=== PATIENT | male | born 1950 | race Caucasian/White ===

== ENCOUNTER 2017-01-10 02:33 | Inpatient (IN) | payer MEDICARE, MEDICAID ==
[2017-01-10] VITALS (12 sets, daily range): BP systolic 92–136; BP diastolic 57–78; PULSE 54–71; RESP 15–22; O2SAT 95–100
[~2017-01-10] VITALS: Ht 177.8 cm; Wt 100.0 kg
[2017-01-10] MEDS ORDERED: Acetaminophen IV 1,000 MG in IV Premix 1 EACH IV PRN (04:00)
[2017-01-10] MEDS ORDERED: Vancomycin Dose per Pharmacist XX SCH (04:00)
[2017-01-10] MEDS ORDERED: Albuterol 2.5 mg/3 mL Inhalation Solution NEB PRN (04:00)
[2017-01-10] MEDS ORDERED: fentaNYL 2,500 mCg/250 mL 2,500 MCG in IV Premix 1 EACH IV PRN (04:02)
[2017-01-10] MEDS ORDERED: Dexmedetomidine 400 mCg/100 mL 400 MCG in IV Premix 1 EACH IV SCH (04:02)
[2017-01-10] MEDS ORDERED: fentaNYL-PF 50 mCg/mL 2 mL Inj IVPUSH PRN (04:05)
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
[2017-01-10] MEDS: Chlorhexidine 0.12% 15 mL Oral Solution MT SCH ×5 (04:30→20:30)
[2017-01-10 04:33] LABS: Mean Corpuscular Hemoglobin 30.2 pg (27.0-35.0); Mean Corpuscular Volume 92.7 fL (81-100); Platelet Count 199 bil/L (150-400)
[2017-01-10] MEDS ORDERED: Levofloxacin 750 mg/150 mL D5W IV ONE (04:35)
[2017-01-10] MEDS ORDERED: Piper-Tazo 3.375 Gm/50 mL D5W Minibag Plus - Q8H over 4 hrs IV ONE ×2 (04:35)
[2017-01-10] MEDS ORDERED: Piperacillin-Tazo 3.375 Gm Inj 3.375 GM in Dextrose 5% Minibag Plus 50 ML IV ONE (04:35)
--- NOTE | 2017-01-10 04:53 | ABG ---
DateTimeAnalyzed 04:49:00 -_ pH ____7.547 - pCO2 ___24.8__ -mmHg pO2 405 -mmHg HCO3- ___21.5__ -mmol/L ABE ____0.6__ -mmol/L tHb ___13.2__ -g/dL O2Hb ___98.1__ -% COHb ____1.0__ -% MetHb ____1.0__ -% sO2 __100.1__ -% FIO2 __100.0__ -% PEEP ____5.0__ -cmH2O Set_RR ___22.0__ -b/min Vt __590.0__ -L Drawn By MD - Date/Time Notified____ 04:52:00 -_ Spontaneous_RR ___22.0__ -b/min Oxygen Device 1 VENTILATOR - Notified By MD - Notified Whom RN J TAINA - B 762 -mmHg tO2 ___19.2__ -Vol% OrderingPhysicianInitials mf - Juan test N/A -
[2017-01-10 04:59] LABS: BASOPHILS % (AUTO) 0 % (0-3); EOSINOPHILS % (AUTO) 1 % (0-5); MONOCYTES % (AUTO) 10 % (4-12); NEUTROPHILS % (AUTO) 78 % (40-74)
[2017-01-10] MEDS ORDERED: MethylprednisoLONE Sodium Succinate 62.5 mg/mL 2 mL Inj IVPUSH ONE (05:40)
--- NOTE | 2017-01-10 06:15 | PCM.CONPHA ---
Subjective Date of Service: January 10, 2017 Requesting Provider: Rene Penaloza MD Respiratory Failure Reason for Pharmacy Consult: Vancomycin Dosing Objective Vital Signs Date Time Temp Pulse Resp B/P Pulse Ox O2 Delivery O2 Flow Rate FiO2 01/10/17 04:15 59 100 100 Height (Feet): 5 Height (Inches): 10.00 Test 01/10/17 04:25 White Blood Count 17.7th/mm3 (3.8-10.1) Red Blood Count 4.37mil/mm3 (4.40-5.80) Hemoglobin 13.2g/dL (13.8-17.2) Hematocrit 40.5% (41.0-50.0) Mean Corpuscular Volume 92.7fL (81-100) Mean Corpuscular Hemoglobin 30.2pg (27.0-35.0) Mean Corpuscular Hemoglobin Concent 32.6% (32.0-37.0) Red Cell Distribution Width 16.9% (12.3-15.4) Platelet Count 199bil/L (150-400) Neutrophils (%) (Auto) 78% (40-74) Lymphocytes (%) (Auto) 6% (14-46) Monocytes (%) (Auto) 10% (4-12) Eosinophils (%) (Auto) 1% (0-5) Basophils (%) (Auto) 0% (0-3) Band Neutrophils % 3% (1-5) Metamyelocytes % 2% (0-0) Sodium Level 141mEq/L (134-144) Potassium Level 4.7mEq/L (3.5-5.2) Chloride Level 107mEq/L (97-108) Carbon Dioxide Level 23mmol/L (18-29) Blood Urea Nitrogen 24mg/dL (8-27) Creatinine 0.98mg/dL (0.76-1.27) Estimat Glomerular Filtration Rate 81mL/min (>59) Glucose Level 162mg/dL (60-99) Lactic Acid Level 2.0mmol/L (0.4-2.0) Calcium Level 7.0mg/dL (8.5-10.1) Total Bilirubin 0.6mg/dL (0.0-1.2) Aspartate Amino Transf (AST/SGOT) 64U/L (0-50) Alanine Aminotransferase (ALT/SGPT) 149U/L (0-44) Alkaline Phosphatase 42U/L (25-160) Total Protein 4.4g/dL (6.4-8.4) Albumin 2.4g/dL (3.4-5.0) Prealbumin 27mg/dL (20-40) Procalcitonin 0.67ng/mL (0.00-0.08) Hold Ha Top Tube Received (Received) Assessment/Plan Assessment/Plan A: * Vancomycin dosing by pharmacy for 66 y/o man with possible healthcare associated pneumonia * [facility], the patient received vancomycin 2000 mg IV at around 0300 on 01/10 * He is also being started on Zosyn and Levaquin * Estimated CrCl for the patient is 91 mL/min (Cockcroft & Gault using AdjBW) * Estimated vancomycin half-life is 9 hours and estimated Vd is 76 liters P: * Starting vancomycin 1750 mg IV every 12 hours * Target a vancomycin trough range of 15 - 20 mcg/mL * Drawing a trough level prior to the fourth dose Thank you. Pharmacy will continue to follow this patient. Harika Amado, PharmD Harika Amado January 10, 2017 06:15
--- NOTE | 2017-01-10 06:37 | NUR ---
Admit note: Pt arrived to room 2016 at 0350 per cart by flight crew. Pt was sedated and intubated being ventilated by BVM. Pt lifted over to bed and levophed and NS bolus was started. Pt had received 3Liter of [place] [facility] and 1 liter of NS here. Levophed started along with propofol for sedation. Pt had vanco infusing on arrival and was continued. Pt also received levaquin and zosyn. flanagan was inserted with tea colored urine. Blood cultures and labs were obtained.
[2017-01-10] MEDS: Propofol Inj 1,000,000 MCG in IV Premix 1 EACH IV SCH ×5 (06:46→23:17)
[2017-01-10] MEDS ORDERED: Norepinephrine 8,000 mCg/250 mL D5W Premix IV SCH (07:00)
[2017-01-10] MEDS: Heparin 5,000 Unit/mL Inj SUBQ SCH ×3 (08:30→16:30)
[2017-01-10] MEDS ORDERED: CHOL400T PO (08:33)
[2017-01-10] MEDS ORDERED: CALC600T20 PO (08:33)
[2017-01-10] MEDS ORDERED: FOLI1TAB18 PO (08:34)
[2017-01-10] MEDS ORDERED: DIVA500T14 PO (08:34)
[2017-01-10] MEDS ORDERED: HYDR25SU31 RC (08:34)
[2017-01-10] MEDS ORDERED: TAMS0.4C98 PO (08:35)
[2017-01-10] MEDS ORDERED: RIVA20TA PO (08:35)
[2017-01-10] MEDS ORDERED: VIT1CAPS8 PO (08:36)
[2017-01-10] MEDS ORDERED: POLY17PO6 PO (08:37)
[2017-01-10] MEDS ORDERED: ACET325T51 PO (08:37)
[2017-01-10] MEDS ORDERED: SERT20OR6 PO (08:38)
[2017-01-10] MEDS ORDERED: LEVO750T9 PO (08:38)
[2017-01-10] MEDS ORDERED: FURO-129 PO (08:38)
[2017-01-10] MEDS ORDERED: LISI10TA PO (08:39)
[2017-01-10] MEDS ORDERED: METO100T3 PO (08:39)
[2017-01-10] MEDS ORDERED: PRE20 PO (08:40)
[2017-01-10] MEDS ORDERED: LACT1CAP73 PO (08:41)
--- NOTE | 2017-01-10 08:50 | DRSVH ---
PROCEDURE: X-RAY CHEST ONE VIEW, PORTABLE ([id number]) INDICATIONS: vented patient TECHNIQUE: One view of the chest was acquired. COMPARISON: [facility], , CHEST 2 VIEW, 11/19/2008, 10:32. FINDINGS: Surgical changes and devices: Right IJ CVL present with tip projected over the cavoatrial junction. The expected position of the ETT and nasogastric tube.. Lungs and pleura: Lung findings are low. Interstitium is prominent. Spiculated density projected ov er the lower one third of the right lung. Air space opacity involves the medial left lung base. Mediastinum: Mediastinal contours appear normal. Heart size is normal. Bones and chest wall: No suspicious bony lesions. Overlying soft tissues appear unremarkable. IMPRESSION: 1. Support lines and tubes as above. 2. Possible spiculated density involving the lower one third of the right lung. Although findings ma y be related to summation shadow or pulmonary vessel on end, small spiculated nodule cannot be exclud ed and attention on followup imaging is recommended. 3. Medial left basilar airspace opacity consistent with atelectasis aspiration or pneumonia. Dictated by: Chacorta IVORY Interpreted: Paige Acevedo MD on 01/10/2017 at 8:47 Transcribed by: LYNDA on 01/10/2017 at 8:49 Approved by: Paige Acevedo M.D. on 01/11/2017 at 9:07
--- NOTE | 2017-01-10 08:58 | NUR ---
Admit nurse: Med rec and admission completed from records provided by [facility] and [facility] of [place]. Pt is intubated and unable to participate at this time.
[2017-01-10] MEDS ORDERED: Midazolam Inj 100 MG in IV Premix 1 EACH IV SCH (09:05)
[2017-01-10] MEDS ORDERED: levETIRAcetam Inj 1,000 MG in IV Premix 1 EACH IV ONE ×2 (09:10→13:20)
[2017-01-10] MEDS ORDERED: Heparin 25K Unit/500mL 0.45 NS 25,000 UNIT in IV Premix 1 EACH IV SCH (09:15)
[2017-01-10] MEDS ORDERED: Heparin 5,000 Unit/mL Inj IVPUSH PRN (09:15)
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
--- NOTE | 2017-01-10 10:18 | NUR ---
Faxed clinicals and facesheet to [facility] [place] [facility], patient was sent there from [facility]. Wanting to updated facility and let them know his progress. Fax for [facility] [place] [phone] Phone for [facility] [place] [facility] [phone]
--- NOTE | 2017-01-10 10:31 | NUR ---
NUTRITION ASSESSMENT: ASSESS: Pt is a 66yo M admitted for respiratory failure. Pt is currently vented and sedated. NPOx1 day. Received verbal order in rounds to start TF. PMHX: Afib, seizures, TBI, HTN, Depression LABS: Reviewed. Glu 162, Ca 7.0, AST 64, ALT 149, Alb 2.4 MEDS: Reviewed. Fentanyl, propofol currently running at 19.4ml/hr providing 512kcal/day GI: 0 BM recorded yet SKIN: Alberto 8, no issues noted yet CURRENT WTS: 108.2kg, BMI 34.2kg/m2, IBW 74.5kg DIET: NPO x1 day EST. NEEDS: BMI, vent Kcals: 2165-2380kcal/day (20-22kcal/kg) Pro: 110-135g/day (1.5-1.8g/kg) Fluids: ~2700-3200ml/day (25-30ml/kg) NUTRITION DIAGNOSIS: 1.) Inadequate oral intake related to decreased ability to consume sufficient energy as evidenced by current NPO status NUTRITION INTERVENTION: 1.) Recommend start TF of pulmocare at 10ml/hr. If tolerated, advance by 10ml q 6 hrs until reach goal rate of 57ml/hr to provide 1881kcal (2393kcal w/propofol) and 78.5g pro (100% kcal and 71% pro needs) 2.) Once TF at goal rate, recommend addition of 1 packet prosource TID to better meet pro needs. 3.) Adjust goal rate based on daily propofol rate. MONITOR / EVAL: NPO/vent, TF start/phyllis, wt, GI, labs, POC, nutrition status. Will continue to monitor per high nutrition risk guidelines.
[2017-01-10 10:33] LABS: APPEARANCE,URINE HAZY (CLEAR,HAZY); COLOR,URINE STRAW (YELLOW); PH,URINE 6.5 (5.0-8.0)
[2017-01-10 10:34] LABS: OCCULT BLOOD,URINE NEGATIVE (NEGATIVE); UROBILINOGEN,URINE NORMAL (NORMAL)
[2017-01-10] MEDS: Famotidine Inj 10 MG in Dextrose 5% 50 ML IV SCH ×2 (10:57→20:19)
--- NOTE | 2017-01-10 13:03 | DRSVH ---
PROCEDURE: CT ANGIO CHEST PULMONARY EMBOLISM ([id number]) INDICATIONS: ?PE TECHNIQUE: After the administration of intravenous contrast, 2 mm thick sections acquired from the pulmonary api ruddy to the posterior costophrenic angles. 3-dimensional maximum intensity projection (MIP) coronal a nd sagittal reformats were then acquired through the thorax. For radiation dose reduction, the follo wing was used: automated exposure control, adjustment of mA and/or kV according to patient size. COMPARISON: None. FINDINGS: Image quality: Excellent. Pulmonary arteries: Pulmonary arteries are normal in size, and demonstrate no intraluminal filling d efects to suggest central pulmonary embolism. Lungs and pleura: Endotracheal tube noted. A small right pleural effusion and trace left pleural flu id. There is adjacent atelectasis in lung bases. No pneumothorax. Mediastinum: Heart size is mildly enlarged, without pericardial effusion. No mediastinal or hilar a denopathy. Thoracic aorta is normal in caliber although not well contrast opacified. Esophagus is n ormal in caliber, without hiatal hernia. There is an enteric tube Bones and chest wall: No suspicious bony lesions. Ribs and thoracic spine appear intact throughout. No axillary or supraclavicular adenopathy. Abdomen: Visualized upper abdominal solid organs appear normal in the early arterial phase of enhanc ement. IMPRESSION: No evidence of pulmonary embolism. Small bilateral pleural effusions, right greater than left, with adjacent atelectasis. Mild cardiomegaly Dictated by: Jeremias Duron M.D. on 01/10/2017 at 12:54 Approved by: Jeremias Duron M.D. on 01/10/2017 at 13:01
[2017-01-10] MEDS: Midazolam Inj 100 MG in IV Premix 1 EACH IV SCH (14:39)
[2017-01-10] MEDS: Piperacillin-Tazo 3.375 Gm Inj 3.375 GM in Dextrose 5% Minibag Plus 50 ML IV SCH ×2 (14:41→23:20)
[2017-01-10] MEDS ORDERED: Vancomycin Inj 1,750 MG in Dextrose 5% 500 ML IV SCH (15:00)
[2017-01-10] MEDS ORDERED: Sodium Chloride LOK Flush 10 mL Syringe IVFLUSH PRN ×2 (16:15)
[2017-01-10] MEDS: 0.9% Sodium Chloride 1,000 ML IV SCH (16:57)
--- NOTE | 2017-01-10 17:24 | ABG ---
DateTimeAnalyzed 17:20:00 -_ pH ____7.506 - 7.350 7.450 pCO2 ___30.0__ -mmHg 35.0 45.0 pO2 ___92.3__ -mmHg 69.0 116 HCO3- ___23.5__ -mmol/L 22.0 26.0 ABE ____1.5__ -mmol/L -2.0 2.0 tHb ___12.8__ -g/dL O2Hb ___95.8__ -% COHb ____1.1__ -% MetHb ____1.0__ -% sO2 ___97.9__ -% 25.0 FIO2 ___40.0__ -% PEEP ____5.0__ -cmH2O Set_RR ___15.0__ -b/min Vt __590.0__ -L Drawn By as - Date/Time Notified____ 17:24:00 -_ Spontaneous_RR ___15.0__ -b/min Oxygen Device 1 VENTILATOR - Notified By ams - Notified Whom [facility] Benitez, RN - B 760 -mmHg tO2 ___17.3__ -Vol% Juan test _Positive -
--- NOTE | 2017-01-10 18:03 | NUR ---
Cardiac/pulmonary/sedation Diaphoretic throughout shift, skin pale and cool to the touch. Tmax 37.9. SB with frequent PACs and WAP per monitor technician, heart rate sustained in the low to mid 50s. Norepinephrine infusing at 0.02mcg/kg/min. Trace periorbital edema. Opens eyes to painful stimuli, lens grinder rough on command. Continues on PRVC with 40% fi02 and 5 of PEEP. Small amount of thin clear secretions with ET suction. Sp02 maintained >92% throughout shift. Propofol and fentanyl continued for pain control and ventilator tolerance.Heparin gtt continued per orders. No s/s of seizure activity. Keppra infused as scheduled. Aponte to DD with adequate output. Tube feeding initiated. Blood glucose trending in the 170s to 180s. Will continue to monitor.
--- NOTE | 2017-01-10 18:33 | DRSVH ---
[facility] [address] [place] [address] Echocardiogram Report Name: ANDREA FRIEDMAN CStudy Date: 01/10/2017 Height: 70 in Hospital Exam Location: [facility] Weight: 238 lb Gender: Male BSA: 2.2 m2 : 1950 Age: 66 yrs BP: 131/67 mmHg Reason For Study: Congestive Heart Failure Ordering Physician: Performed By: Katy GARCIAIST [facility] Interpretation Summary Left ventricular systolic function is mildly reduced. The ejection fraction is estimated to be 45-50%. There is posterolateral wall moderate hypokinesis. The right ventricle is not well visualized. The right ventricle is grossly normal size. There is mild mitral regurgitation. There is mild aortic regurgitation. No other echocardiographic abnormalities seen. Procedure: A two-dimensional transthoracic echocardiogram with color flow and Doppler was performed. The study quality was technically adequate. There is no prior echocardiogram noted for this patient. A contrast injection of Definity was performed to improve assessment of LV function. Left Ventricle: The left ventricle is normal in size. Left ventricular wall thickness is mildly increased. Left ventricular systolic function is mildly reduced. The ejection fraction is estimated to be 45-50%. There is posterolateral wall moderate hypokinesis. Diastolic function could not be accurately assessed due to unobtainable data. Right Ventricle: The right ventricle is not well visualized. The right ventricle is grossly normal size. Atria: The left atrium is moderately dilated. Right atrium not well visualized. There is no Doppler evidence for an interatrial shunt. Mitral Valve: The mitral valve leaflets appear mildly thickened, but open well. There is mild mitral regurgitation. Aortic Valve: The aortic valve is not well visualized. There is no aortic valve stenosis. There is mild aortic regurgitation. Tricuspid Valve: The tricuspid valve is not well visualized. Pulmonary artery pressures cannot be estimated because of the lack of a measurable TR jet velocity. Pulmonic Valve: There is a trace or physiologic amount of pulmonic regurgitation. Great Vessels: The aortic root is normal size. The ascending aorta could not be visualized. The inferior vena cava was not visualized. Pericardium/ Pleura There is no pericardial effusion. MMode/2D Measurements & Calculations LVIDd: 5.5 cm LA A2 area LVOT diam LV scherer. diameter/BSA LVIDs: 3.4 cm (cm/m^2): 2.4 FS: 37.9 % Ao root IVSd: 0.98 cm LA A4 area diam: 3.9 cm LVPWd: 0.94 cm LA length (vol) LA vol: 104.7 ml LA vol index : 46.6 ml/m2 LV sys. diameter/BSA (cm/m^2): 1.5 Doppler Measurements & Calculations Ao V2 max MV E max olvin MV E/A: 2.1 PA V2 max : 152.5 cm/sec : 114.4 cm/sec Med Peak E' Olvin : 77.0 cm/sec Ao max PG MV A max olvin PA mean PG : 9.3 mmHg : 53.7 cm/sec E/E' med: 13.9 Ao mean PG MV P1/2t: 60.7 msec Lat Peak E' Olvin PA Accel Time : 0.11 sec LVOT Max Olvin MR ERO: 0.03 cm2 E/E' lat: 16.5 : 86.0 cm/sec E/e' average: 15.2 NUPUR(I,D): 3.0 cm sev ratio MV dec time MV P1/2t max olvin Ao V2 mean LV V1 max PG : 0.20 sec : 93.1 cm/sec MVA(P1/2t): 3.6 cm2 Ao V2 VTI: 34.8 cm LV V1 VTI NUPUR(V,D): 2.7 cm2 : 21.6 cm MR flow rate PA V2 mean NUPUR indexed to BSA : 18.4 cm3/sec : 51.4 cm/sec (cm^2/m^2): 1.3 MR PISA radius Reading Physician:06:32 PM
--- NOTE | 2017-01-10 18:43 | CONS ---
[address] [address] CONSULTATION REPORT PATIENT: ANDREA FRIEDMAN : 1950 MR#: [id number] ADMIT: 01/10/2017 JOB ID: [id number] DATE OF SERVICE: 01/10/2017 CONSULTING PHYSICIAN: Belgica Zuniga DO (RES) REASON FOR CONSULTATION: Initial ventilator management consultation. SUBJECTIVE: The patient is a 66-year-old, male who recently spent time approximately 10 days at [facility] in [place], [place] for pneumonia and altered mental status. 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 Extensive workup revealed no apparent acute ADMINISTRATIVE LIBRARY ASSISTANT etiology. Was intubated for three or four days, extubated without difficulty and sent to his care facility. However, within 12 hours, he developed fever, shortness of breath, headache and nausea. Was presented to [facility] in [place], [place], found to be in AFib with RVR. Underwent cardioversion. Ultimately required intubation for increased heart rate and respiration. [facility]. MEDICATIONS ON ADMISSION: 1. Tylenol. 2. Lasix. 3. Levaquin. 4. Lisinopril. 5. MiraLAX. 6. Depakote. 7. Metoprolol. 8. Prednisone on tapering dose. 9. Xarelto. 10. Calcium with vitamin D. 11. Folic acid. 12. Zoloft. 13. Flomax. 14. Hydrocortisone suppository. 15. Metrogel. ALLERGIES: 1. SULFACETAMIDE causes a rash. 2. TOPIRAMATE unknown response. SOCIAL HISTORY: Smoking history: Former smoker. Alcohol use: None. No other information was available. Unable to obtain review of systems, family history, social history as the patient is currently sedated and intubated on mechanical ventilation. OBJECTIVE: Temperature 37.9, pulse 71, and somewhat irregular. Monitor shows episodes of sinus rhythm alternating with nonsustained atrial tachycardia. Respiratory rate of 15 with the ventilator set at a rate of 15. O2 sat on FiO2 of 40% PEEP of 5 is 99%. General appearance: Sedated on a ventilator. Drenching sweats of head. Thorax, upper extremities and proximal lower extremities are clammy. Both feet are quite cold, somewhat pale. Eyes: Conjunctiva pink and moist. Edematous sclerae. Pupils reactive to light. Chest: Fair breath sounds bilaterally. There are scattered crackles at both bases, more so on the right than the left. No wheeze. With heart irregular rhythm at times. Other times, it seems regular. Abdomen is soft. Nondistended. Nontender. Liver and spleen not palpable. No masses palpable. Bowel tones present. Extremities: No pretibial edema. Skin: No rash. Does have a bruise by the right upper shoulder, actually more towards the upper humeral area as well as the left lateral chest wall. Some spontaneous nonpurposeful movements of the extremities. LABORATORY DATA: Shows a white count of 17,700 with 78 polymorphonuclears, 3 bands, 2 metamyelocytes, lymphocytes 6, monocytes 10, hemoglobin 13.2. Platelet count 199,000. Sodium 141, potassium 4.7, chloride 107, CO2 is 23, BUN 24, creatinine 0.9, glucose 162, calcium 7.0 with an albumin of 2.4. Total bilirubin normal at 0.6. AST mildly elevated at 64. ALT moderately elevated at 149. Alk phos normal at 42. Procalcitonin 0.6. PTT is 25.3 seconds. Valproic acid level is 19, therapeutic being 50-125. Arterial blood gases on an FiO2 of 100% PEEP of 5, respiratory rate 22, tidal volume of 590 shows pO2 of 405, pCO2 of 24, pH 7.54. Vent changes have been made, currently with a respiratory rate of 15 with a tidal volume remaining at 590 mL. ASSESSMENT: 1. Atrial fibrillation. Review of the chart reveals atrial fibrillation with rapid ventricular response, presumably prior to cardioversion. Currently, ventricular rate in the low 60s. Some evidence of ectopy consistent with nonsustained atrial tachycardia. 2. Intubation for increasing dyspnea. Currently oxygenating well. Ventilation is not a problem and, in fact, rather easy to ventilate. Chest x-ray looks relatively normal to my eye, without significant abnormalities. Overall unclear as to why he would suddenly deteriorate after a rather extensive evaluation and treatment program. Arrhythmia, seizure, possibly PE and possibly ADMINISTRATIVE LIBRARY ASSISTANT event, maybe stroke or bleed, all need to be considered. Workup just getting started and ongoing. For the moment, we can decrease his ventilator settings, get them more stable and repeat gases to make sure his alkalemia has resolved. Would consider evaluation for the above-mentioned entities. Not sure that infection is playing a significant role here. PLAN: 1. Decrease FiO2 until sat is in the high 90s. Then, obtain arterial blood gases. 2. CT angiogram of the chest with PE protocol. 3. Consider EEG and ADMINISTRATIVE LIBRARY ASSISTANT imaging. 4. Consider echocardiogram though echocardiogram done recently at [facility] shows good ventricular function with ejection fraction of about 45%. Thank you so much for asking the Pulmonary service to see this most interesting individual. Will follow his respiratory status closely along with you.
--- NOTE | 2017-01-10 19:05 | DRSVH ---
PROCEDURE: US ABDOMEN ([id number]) INDICATIONS: sepsis, rising LFTs TECHNIQUE: Real-time scanning was performed of the abdominal and retroperitoneal organs, with image documentatio n. COMPARISON: [facility], CT, CT ANGIO CHEST PE, 01/10/2017, 12:25. FINDINGS: Liver: Liver is normal in size with markedly increased echogenicity and coarse sonographic echotextu re limiting evaluation for focal lesions. Gallbladder: The gallbladder is distended without gallstones, wall thickening, or pericholecystic flu id are Biliary ducts: The intra-and extrahepatic ducts are not well visualized due to increased hepatic echo genicity. Pancreas: Not well-seen. Spleen: Spleen is normal in size and homogeneous in echotexture. Kidneys: Right kidney measures 13.3 cm long; left kidney measures 12.4 cm long. No hydronephrosis. There is a small round echogenic lesion peripherally in the lower pole of the right kidney measuring 1.3 x 1.2 x 1.3 cm suggestive of an angiomyolipoma. Aorta: Visualized aorta is normal in caliber at less than 3 cm. Iliacs: Proximal common iliac arteries are normal in caliber at less than 2.5 cm. IVC: Intrahepatic inferior vena cava is patent. Miscellaneous: No free abdominal fluid. IMPRESSION: 1. Markedly increased hepatic echogenicity with coarse echotexture likely representing hepatic steat osis and limiting evaluation. 2. Distended gallbladder without cholelithiasis or definite evidence of cholecystitis. 3. 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 Dictated by: Robert Li M.D. on 01/10/2017 at 18:58 Approved by: Robert Li M.D. on 01/10/2017 at 19:03
[2017-01-10] MEDS: Chlorhexidine 0.12% 15 mL Oral Solution MUC_MEMBRM SCH (23:20)
--- NOTE | 2017-01-10 23:47 | CONS ---
[address] [address] CONSULTATION REPORT PATIENT: ANDREA FRIEDMAN : 1950 MR#: [id number] ADMIT: 01/10/2017 JOB ID: [id number] DATE OF SERVICE: 01/10/[address] Zuniga for this consult. REASON FOR CONSULTATION: Nosocomial pneumonia with respiratory failure. HISTORY OF PRESENT ILLNESS: The patient is a 66-year-old gentleman who has never have been seen at this hospital before. His past medical history is complex but includes atrial fibrillation, for which he is on Xarelto, a seizure disorder and inflammatory arthritis. It is unclear to me if she has any underlying pulmonary disease. In any event, the patient lives in [facility] and was admitted to [facility] in [place] during the first couple of weeks of December and was actually intubated for a few days with what was thought to be a community-acquired pneumonia. He was treated there with azithromycin and ceftriaxone and then sent out just a day or two ago on levofloxacin. He was actually sent to the [facility] apparently at [place] which is near his residence. Unfortunately, he deteriorated quickly there and developed fever and respiratory difficulties. There were plans to take him back to [facility], of course, as he had only been discharged within a day or two, but apparently their ICU was filled and he was diverted here and admitted in the guidance adviser hours today. In reviewing the records from [facility] during his admission earlier this month, it appeared that he had been treated broadly initially because they thought he might have encephalitis, but imaging of the brain and an LP did not find any evidence of that. He was subsequent treated primarily for community-acquired pneumonia. The patient required intubation even before his transfer from [facility] to here so we really have nothing in the way of medical history regarding what has transpired over the past 24 hours or so. It appears he was discharged from [facility] yesterday, made it to [facility] [place] and then immediately deteriorated, bringing him back to the ED at [place] and then eventually his transfer here. Unfortunately, there is almost nothing known other than at the time he was at [facility] yesterday and perhaps early this morning, he complained of headache, associated with shortness of breath and a new onset fever. He also complained of nausea and worsening shortness of breath, required high-flow oxygen and then was intubated and transferred. Other issues noted during this transfer included a rapid AFib which required beta-blockers. At this point, the patient is in the ICU here at [facility] with this relatively dearth of history and data available. ID consultation is requested regarding possible infectious etiology. PAST MEDICAL HISTORY: 1. Organic heart disease; a. AFib on Xarelto. b. Chronic congestive heart failure with ejection fraction about 45%. 2. Migraine headaches. 3. History of cerebrovascular accident. 4. History of head trauma. 5. Hypertension. 6. History of seizures. 7. Inflammatory arthritis, type unknown. SOCIAL HISTORY: The patient is an ex-smoker, it says in the chart, though I have no way to ask him about that, and he is said to be a nondrinker. FAMILY HISTORY: Not available from this intubated, sedated ICU patient. REVIEW OF SYSTEMS: Not available from this intubated, sedated ICU patient. PHYSICAL EXAMINATION: Reveals a mildly obese, chronically ill-appearing gentleman lying intubated in the ICU. Temperature is 37.3. When he 1st got here, it was 37.9. Pulse is currently in the 60s. He is in AFib. Blood pressure is 124/74, and he is on low to medium dose norepinephrine. He is on 40% and 5 of PEEP on the ventilator saturating 98%. Examination of the eyes reveals no conjunctival abnormalities or scleral icterus. The nose is normal. Oral gastric tube and oral endotracheal tube are in good position. The patient's neck is supple. He does not have cervical or supraclavicular adenopathy. His lungs are notable for a few crackles at the bases but surprisingly clear. His cardiac tones: Irregular rate and rhythm without notable murmur. His abdomen is soft and nontender. I do not perceive any hepatosplenomegaly nor ascites. He has normal penis and scrotum. A Aponte catheter is present draining reasonable amounts of clear yellow urine. He has no inguinal adenopathy. His extremities are well perfused. He has reasonable capillary refill in his feet. He does not have evidence of cellulitis nor did he have any evidence of synovitis at this juncture. I cannot perform a neurologic exam as the patient is intubated, sedated and basically unresponsive at this point. Note that overall the patient is very diaphoretic. LABORATORY: Labs include white count 17,000 with 78% segs, 3% bands and 2% metamyelocytes. Platelets 199. Creatinine is 0.98. AST was 64, ALT 149, pro calcitonin is 0.67. Urine is without pyuria. Valproic acid level is 19. Urine Legionella is negative. I do not see a urine pneumococcal antigen. Blood cultures are negative, but they are only a few hours old. MRSA screen of the nares is negative. A Gram stain taken from the endotracheal tube shows rare polys and no organisms. I carefully reviewed his chest CT scan myself and also the radiologist's report. There is no pulmonary embolism and is really not much in the way of infiltrate. There may be a bit of right greater than left atelectasis and some small bilateral effusions greater on the right than the left. The heart is a little generous but, in general, the chest CT does not seem of enough adequate severity to produce this respiratory difficulty. IMPRESSION: This is a confusing case of a gentleman who was just literally at [facility] yesterday after about a 10 day or so hospitalization which started off with respiratory failure and intubation felt secondary to pneumonia with associated encephalopathy. He was treated with standard drugs including ceftriaxone and azithromycin and seemed to improve and then was sent back to the [facility] on levo and some supplemental oxygen. He rapidly deteriorated with fever, nausea, perhaps confusion and shortness of breath. Was taken to the ED in [place] where he was found to be rapidly deteriorating and required intubation. He was transferred to this facility because were no intensive care beds available at that facility. At this point, I see little evidence of overwhelming infection. The patient has really very little to suggest an overwhelming hospital- associated pneumonia even though we was recently hospitalized. He has scant sputum. His chest CT does not look bad, and he is only on 40% and 5 of PEEP, oxygenating well. Other sources for a possible severe nosocomial infection, of course, includes sinusitis, line sepsis, C. differential, fungemia though I think that is unlikely in a patient who was not subjected to that much antibiotic pressure, DVT, acalculous cholecystitis or hepatitis, or acalculous cholecystitis or nosocomial hepatitis, or perhaps a wound infection which is not readily apparent. RECOMMENDATIONS: 1. I would proceed with Zosyn as the primary antibiotic here while we attempt to sort this out. We have no evidence for methicillin-resistant Staphylococcus aureus on either the sputum Gram stain nor on our nasal PCR study, and I think we do not need to cover for that at this point. Likewise, the patient has received a lot of treatment for atypicals having gotten several days of azithromycin in the hospital and then even continuing levo after he left the hospital, so I think that atypical pulmonary pathogens would be quite unlikely. 2. I would check blood cultures x2 as has already been done. 3. Should the patient have any diarrhea, which he does not yet, I would check C. diff. 4. Consider ultrasound of lower extremities looking for DVT. 5. Right upper quadrant ultrasound will be ordered as well as a lipase. 6. Will continue to closely follow this complex patient with you.
[2017-01-11] VITALS (8 sets, daily range): BP systolic 104–130; BP diastolic 55–77; PULSE 6–125; RESP 15–21; O2SAT 96–100
[2017-01-11] MEDS: Chlorhexidine 0.12% 15 mL Oral Solution MUC_MEMBRM SCH ×8 (00:30→20:56)
[2017-01-11] MEDS: Chlorhexidine 0.12% 15 mL Oral Solution MT SCH (02:42)
[2017-01-11] MEDS: Propofol Inj 1,000,000 MCG in IV Premix 1 EACH IV SCH ×3 (02:42→09:09)
[2017-01-11] MEDS: Heparin 5,000 Unit/mL Inj SUBQ SCH ×2 (02:42→07:31)
[2017-01-11] MEDS: 0.9% Sodium Chloride 1,000 ML IV SCH ×3 (02:42→22:20)
[2017-01-11 04:55] LABS: BASOPHILS % (AUTO) 0.4 % (0-3); EOSINOPHILS % (AUTO) 1.6 % (0-5); MONOCYTES % (AUTO) 7.7 % (4-12); Mean Corpuscular Hemoglobin 30.4 pg (27.0-35.0); Mean Corpuscular Volume 94.1 fL (81-100); NEUTROPHILS % (AUTO) 73.4 % (40-74); Platelet Count 141 bil/L (150-400)
--- NOTE | 2017-01-11 05:02 | NUR ---
Vent, sedation, cardiac VS as noted. Continues ventilated with sats high 90s on 40% fio2 without desaturations. Suctioning small amounts clear secretions per ett with bronchospastic cough. Propofol up to 40mcg/kg/min and Fentanyl up to 75mcg/kg/min for restlessness and bronchospasms. Nods and cross cut sawyer appropriately. Unable to wean Levophed. Tele sinus rhythm with frequent PACs sometimes in bigeminy. Tolerating tube feeds well. Aponte cath in place with adequate uop.
--- NOTE | 2017-01-11 05:10 | ABG ---
DateTimeAnalyzed 04:38:06 -_ pH ____7.418 - pCO2 ___42.9__ -mmHg pO2 ___38.6__ -mmHg HCO3- ___27.7__ -mmol/L ABE ____2.8__ -mmol/L tHb ___12.6__ -g/dL O2Hb ___70.0__ -% COHb ____1.6__ -% MetHb ____0.2__ -% sO2 ___71.3__ -% FIO2 ___21.0__ -% Drawn By MK - Date/Time Notified____ 05:10:00 -_ B 759 -mmHg K+ ____4.0__ -mmol/L tO2 ___12.4__ -Vol% OrderingPhysicianInitials mf - Juan test _Positive -
[2017-01-11] MEDS: Piperacillin-Tazo 3.375 Gm Inj 3.375 GM in Dextrose 5% Minibag Plus 50 ML IV SCH ×3 (05:56→21:12)
--- NOTE | 2017-01-11 07:54 | PCM.PNMED ---
Subjective Date of Service January 11, 2017 Subjective PULMONARY/CRITICAL CARE PROGRESS NOTE Attending: Dr. Oliver Orozco/ Initial consulting physician: Dr. Mann Overnight: No acute events Today: Remains sedated and intubated. Propofol and fentanyl continued. ROS could not be obtained. Vent: PRVC FiO2 0.40, PEEP 5, R15, Vt 500 Exam Vital Signs Vital Sign - Last Date Time Temp Pulse Resp B/P Pulse Ox O2 Delivery O2 Flow Rate FiO2 01/11/17 07:27 36.9 67 15 114/55 99 Mechanical Ventilator 40 Intake and Output 01/10/17 01/10/17 01/11/17 Cumulative From/Thru 15:00 23:00 07:00 01/10/17 04:30 - 01/11/17 05:43 Intake Total 3667 ml 2121 ml 5788 ml Output Total 2900 ml 1000 ml 3900 ml Balance 767 ml 1121 ml 1888 ml Intake IV Total 3667 ml 1871 ml 5538 ml Tube Feeding 170 ml 170 ml Tube Irrigant 80 ml 80 ml Output Urine Total 2900 ml 1000 ml 3900 ml Exam General: Sedated and intubated, in no acute distress HEENT: Atraumatic; sclera anicteric; scleral edema present, mucus membranes moist Neck: Right venous access in place and secured with clean/dry/intact bandaging. Soft Chest: Noted ecchymosis at region of right humeral head; ecchymosis of left lateral rib margin; no evidence active bleeding or penetrating trauma Respiratory: Adequate air flow all arcos; faint crackles right bases; no wheeze Cardiac: Regular rate and rhythm at time of examination; no murmurs appreciated Abdomen: Soft, nontender, nondistended Extremities: No edema; improved perfusion and warmth Pulses: Radial equal and bilateral; posterior tibialis bilateral and equal Neuro: Cannot be obtained secondary to sedation Psych: Cannot be obtained secondary to sedation Lab and Diagnostics Result Diagram: 01/11/1744401/11/17444 Microbiology MRSA screen negative Assessment & Plan PULMONARY/CRITICAL CARE PROGRESS NOTE Attending: Dr. Oliver Orozco/ Initial consulting physician: Dr. Mann Mr. Baumann is a 66 year old gentleman with a history of chronic atrial fibrillation on intermediate anticoagulation, seizure history secondary to a suspected TBI, and HTN, that presented to [facility] via EMS as a transfer from [facility] in [place] for presenting symptoms of AF with RVR and respiratory distress; he was intubated, electrically cardioverted. Admitted to [facility] ICU with suspicions for healthcare associated pneumonia. Hospital day 2 Ventilator day 2 Acute respiratory failure requiring mechanical ventilation, presumed hypoxic, present on admission. Ongoing - DDx: PE, seizure disorder, AF w/ RVR, PNA, CVA/TIA - Intubation likely completed to secure airway during decompensation - Continue mechanical ventilatory support with potential for extubation later today - Decrease sedation for resp trial - Treat underlying cause(s) - Lasix 20mg IV x1 - Speech eval + CXR post extubation Hypotension requiring pressor support, acute, present on admission. Ongoing with improvements - On admit: Norepi - Norepi continued as pressures drop with increases in sedation - Currently onstand-by as sedation is off for ventilatory trials - Utilize prn in conjunction with sedation AF with RVR, acute, present on admission. Resolved - Required electrical cardioversion at [facility] - Currently AF, which developed after sedation stopped for PST - Continue cardiac meds and anticoagulation per primary team - Digoxin 0.25 + loading - Resume xarelto; DC SQ heparin when xarelto initiated Suspected healthcare-associated PNA, acute, present on admission. Unlikely - On admit: PCT 0.67, WBC 17.7 - LA not elevated, multiple micro studies negative - CXR R > L faint opacities - CTA revealed R > L effusion - ID consulted; appreciate time and recs; zosyn as sole abx at this time History of seizure disorder, chronic. Presumed stable - Valproic acid level on admit: 19 (L), range - Change Keppra IV to valproic acid IV at this time until ETT removed and speech eval completed - EEG ordered - Consider valproic acid levels after re-initiation DVT: Hep SQ q8h; will be DC'd when xarelto continued later today GI: H2B Diet: Tube feeds PRN bowel/fever/antiemetic/pain Code: FULL CODE Case and care plan discussed at CCU rounds. Thank you for this consult, we will happily follow along with you at this time. We will begin decreasing sedation and attempting ventilatory trials to approach extubation. Recommend continuing with valproic acid as seizure control, currently avail in-house as IV. Resumed anticoag with Xarelto. Recommend improved AF control with re-initiation of digoxin, which was held at DC from [place] per chart review. Consider EEG. Total time pulmonary/critical care: 80 minutes Pain Evaluation: Adequate Pain Control GI Prophylaxis: H2 tawanda VTE Prophylaxis: Other (xarelto) VTE Mechanical Devices: Intermittant Pneumatic CD Resuscitation Status: CPR: Attempt Resuscitation Attending Statement I have seen and examined this patient with the resident physician. Vital signs , labs, imaging have been reviewed. I agree with the assessment and plan above. Please refer to my separately dictated progress note for any modifications to above. Aretha Orozco M.D. Pulmonary and Critical Care medicine Pager [phone] Clare Raymundo DO January 11, 2017 07:54 Aretha Orozco MD January 11, 2017 13:55
[2017-01-11] MEDS ORDERED: levETIRAcetam Inj 1,000 MG in IV Premix 1 EACH IV SCH (08:30)
[2017-01-11] MEDS ORDERED: levoFLOXacin Inj 750 MG in IV Premix 1 EACH IV SCH (08:30)
[2017-01-11] MEDS ORDERED: MeTOProlol 1 mg/mL 5 mL Inj IVPUSH ONE ×2 (08:45→10:25)
[2017-01-11] MEDS ORDERED: Furosemide 10 mg/mL 2 mL Inj IVPUSH ONE (08:55)
[2017-01-11] MEDS: Famotidine Inj 10 MG in Dextrose 5% 50 ML IV SCH ×2 (09:09→21:12)
[2017-01-11] MEDS ORDERED: VALPROATE SODIUM IV SCH (09:14)
[2017-01-11] MEDS ORDERED: DEXTROSE 5% IV SCH (09:14)
--- NOTE | 2017-01-11 10:15 | DRSVH ---
PROCEDURE: X-RAY CHEST ONE VIEW, PORTABLE ([id number]) INDICATIONS: ETT/lines TECHNIQUE: One view of the chest was acquired. COMPARISON: [facility], CR, XR CHEST 1VW (PORTABLE), 01/10/2017, 5:14. [facility], CT, CT ANGIO CHEST PE, 01/10/2017, 12:25. FINDINGS: Surgical changes and devices: Endotracheal tube tip projected 3.3 cm above the haroon. Expected unch anged positioning of nasogastric tube and right IJ CVL. Lungs and pleura: Lung volumes are low and trace pleural effusions redemonstrated with bibasilar atel ectasis versus pneumonia no pneumothorax.. Mediastinum: Mediastinal contours appear normal. Heart size is normal. Bones and chest wall: No suspicious bony lesions. Overlying soft tissues appear unremarkable. IMPRESSION: 1. Stable support lines and tubes. 2. Trace pleural effusions and bibasilar atelectasis versus pneumonia. Dictated by: Chacorta Rojas Rey Interpreted: Jeremias Duron MD on 01/11/2017 at 10:13 Transcribed by: DARSHAN on 01/11/2017 at 10:15 Approved by: Jeremias Duron M.D. on 01/11/2017 at 14:26
--- NOTE | 2017-01-11 10:30 | NUR ---
Social Work: Initial Assessment D: Per EMR review, pt is a 66 year old male admitted for respiratory failure, AFIB with RVR. Pt is Medicare with [employer]; pt has no LT insurance or VA benefit. PCP is Colt Walden MD. NOK Is Jyoti Baumann, Mother, . Advanced directives completed, TERRAZZO TILE MAKER requested copy for file. Readmit score is high, 6/8. Pt was recently at [facility] for Respiratory Failure and was discharged to [facility]. Pt is currently vented and sedated; TERRA[employer]O TILE MAKER spoke with pt's mother who lives in [place], [place]. Prior to his admission at [facility], pt was living on Saturday, alone. Pt was I with ADLs and drives. Pt has never had HH in the past and does not have [facility] caregiving. Pt's mother states that she has been considering the pt's senior living care options and that he wishes to remain on the [place]. She is agreeable to a expedited [facility] referral if needed. Discharge options reviewed with the pt's mother including SNF CHOICE LIST. Her preference is for the patient to return to [facility]. Pt discussed in am rounds. Pt is anticipated to be extubated today and ready for discharge on Saturday. t/c to [facility]. [employer]RA[employer]O TILE MAKER spoke with Drug Safety Assistant, Samuel. He states that they are able to accept the patient back but would not be able to accept him over the weekend. [facility] has faxed clinicals for them to review. PPW on chart. A: Pt who is I at baseline but will likely require skilled rehab due to length and severity of multiple hospitalizations in the last month. P: Anticipate pt to likely return back to [facility] when medically stable; [employer]KER to continue to follow. EDMAR Diamond Addendum: 01/11/17 at 1100 by JESSICA M HALTERMA SS Amended: Links added.
--- NOTE | 2017-01-11 10:50 | PROG NOTE ---
[address] [address] PROGRESS NOTE PATIENT: ANDREA FRIEDMAN : 1950 MR#: [id number] ADMIT: 01/10/2017 JOB ID: [id number] DATE: 01/11/2017 REASON FOR FOLLOW UP: Respiratory failure, possibly secondary to infection and requiring ventilator support. INTERVAL HISTORY: The patient remains intubated in the ICU. He is sedated but only mildly so and is able to communicate that he wants to be extubated. Beyond that, I am not able to get much history. Note that this case was discussed at the bedside with the ICU nurse. PHYSICAL EXAMINATION: The patient is intubated and lightly sedated but clearly awake. Vital signs include temperature 36.9, and he has been afebrile since his admission. Blood pressure 114/55, pulse in the 60s-70s, and sinus with PACs on the monitor. Respiratory rate ventilator dependent, though in the mid teens with him over breathing some. He is on 40% and 5 of PEEP, and saturating well. Examination of the head reveals no notable abnormalities. The eyes without conjunctivitis. The oral endotracheal tube and orogastric tube are in good position. The central line, likewise, on the right neck is benign-appearing. Lungs with a few crackles at the bases but otherwise negative. The cardiac tones are mainly regular with a few ectopic beats. Abdomen is soft, nontender. Slightly distended. No skin rash. LABORATORIES: Include white count 7600, platelet count 141,000. Creatinine is 0.76. Procalcitonin was 0.67 yesterday. I have asked for repeat today. Toxicology notable for the valproic acid of 19. Urine Legionella antigen negative. Respiratory viral PCR panel negative, including negative on the mycoplasma and Chlamydia. Tracheal aspirate basically rare polys, no organisms or growth. MRSA screen negative, and blood cultures are negative. IMAGING: Includes the abdominal ultrasound which I had ordered yesterday that shows mildly increased hepatic echogenicity, with coarse texture resembling hepatic steatosis, distended gallbladder is seen. CT scan of the chest shows small bilateral pleural effusions, and a chest x-ray with medial left basilar airspace opacity consistent with atelectasis or pneumonia. IMPRESSION: Overall, this patient does not appear terribly infected. This is a confusing case. He was admitted to [facility] for 10 days or so, including a couple of days on the ventilator for what was thought to be community-acquired pneumonia with respiratory failure. He was eventually discharged back to [facility] on oral levofloxacin, but really just spent a day or so there before he developed fever, confusion, shortness of breath and went to the ED [facility] where he was intubated and then transferred here. There is not a lot to suggest hospital-associated pneumonia as he has a fairly unimpressive infiltrate, minimal sputum through the endotracheal tube with hardly any white cells, and is oxygenating quite well. He does have an underlying seizure disorder, and the question has been raised as to whether some of this could have been due to a seizure causing his abrupt deterioration. Other possibilities seem less likely such as sinusitis, Clostridium diff or fungemia. The ultrasound of the right upper quadrant did not yield an obvious cause of these problems. RECOMMENDATIONS: 1. I would proceed with Zosyn as our primary antibiotic. 2. I think we could go ahead and reasonably stop the levofloxacin. 3. We await the many pending cultures. 4. This case discussed at the bedside and with the ICU team.
[2017-01-11] MEDS ORDERED: Diltiazem 5 mg/mL 5 mL Inj IVPUSH ONE ×2 (11:35→13:45)
[2017-01-11] MEDS ORDERED: Digoxin 0.25 mg/mL 2 mL Inj IV ONE (12:00)
[2017-01-11] MEDS: Midazolam Inj 100 MG in IV Premix 1 EACH IV SCH (13:20)
[2017-01-11] MEDS ORDERED: Vancomycin Serum Trough XX ONE (14:30)
--- NOTE | 2017-01-11 14:37 | PROG NOTE ---
[address] [address] PROGRESS NOTE PATIENT: ANDREA FRIEDMAN : 1950 MR#: [id number] ADMIT: 01/10/2017 JOB ID: [id number] PULMONARY CRITICAL CARE PROGRESS NOTE: DATE: 01/11/2017 The patient was seen and evaluated with resident physician, Kavitha Raymundo. Please refer to her separate detailed note for additional information. IDENTIFYING DATA: The patient is a 66-year-old man presenting to the hospital with respiratory failure requiring mechanical ventilation and atrial fibrillation with RVR. REVIEW OF SYSTEMS: Unable to obtain since patient is intubated. INTERVAL HISTORY: He was doing reasonably well on spontaneous breathing trial this morning, but everytime his sedation is lightened, he becomes tachycardic and flips into atrial fibrillation with rates as high as the 140s. PHYSICAL EXAMINATION: Vital signs reviewed. He has been afebrile. FiO2 of 40% on the vent. General: When sedated, he is calm and sleeping but quickly opens his eyes when sedation is lightened, and nods and shakes his head. Chest: Clear to auscultation. LABORATORY DATA: Labs reviewed. Procalcitonin 0.66, stable compared to prior. Cultures: Respiratory viral PCR is negative. Sputum culture is negative. IMAGING: Chest x-ray shows no focal infiltrates. ASSESSMENT AND RECOMMENDATIONS: 1. Acute hypoxic respiratory failure - intubated on January 10. 2. Atrial fibrillation with rapid ventricular response. 3. Suspected aspiration pneumonia. 4. History of seizure disorder and traumatic brain injury. This 66-year-old man had apparently spent about 10 days at [facility] in [place], during which he was intubated. He has a history of traumatic brain injury and subsequent seizures as a child. He also had a problem with altered mental status during that hospitalization in [place] that was of unclear etiology. He came here for apparent atrial fibrillation with rapid ventricular response requiring cardioversion and intubation at an outside facility in Saturday. He is doing really well on a spontaneous breathing trial this morning but still flipping in and out of atrial fibrillation. We are going to go ahead and extubate him. I did give him one dose of Lasix 20 mg IV once to try to get some volume off before extubation. With regards to his aspiration - his pro-calcitonin is slightly high so we should probably treat him for community-acquired aspiration since his sputum cultures are negative for concerning organisms such as Pseudomonas. He is currently on Zosyn. I wonder if we can narrow to Unasyn. With regards to the atrial fibrillation, he is on metoprolol alone, and looking back, he appears to have been on digoxin previously. We are going to restart this. With regard to seizure disorder, he was on Depakote and his valproic acid level is very low so we are going to restart that at a higher dose. He has been getting Keppra in the hospital and I am hoping we can stop that. He is getting subcu heparin and GI prophylaxis. He is a FULL CODE. CRITICAL CARE TIME: 45 minutes. LAURA
[2017-01-11] MEDS ORDERED: Acetaminophen IV 1,000 MG in IV Premix 1 EACH IV ONE (15:00)
[2017-01-11] MEDS ORDERED: Ondansetron 2 mg/mL 2 mL Inj IVPUSH PRN (16:00)
[2017-01-11] MEDS: Digoxin 0.25 mg/mL 2 mL Inj IV SCH ×2 (17:51→21:00)
--- NOTE | 2017-01-11 18:05 | NUR ---
Cardiac/mentation/respiratory Continues in atrial fibrillation per monitor and storage bin tender, rate trending in 80s to 110s. Pressure stable. Pt denies chest discomfort. Alert and oriented. Headache resolved with IV Tylenol. Oxygen saturation maintained >92% on 2L per NC. No reported SOA. No s/s of seizure activity. Tolerating diet. Will continue to monitor.
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
[2017-01-11] MEDS ORDERED: Sertraline 20 mg/mL Liq PO SCH (18:29)
[2017-01-11] MEDS ORDERED: Divalproex (QD) 500 mg ER24 Tablet PO SCH (20:30)
--- NOTE | 2017-01-11 20:53 | NUR ---
Transfer Care Pt alert and oriented x3. Forgetful at times. No c/o pain. Transfer care and report given to Emperatriz.
[2017-01-11] MEDS: Divalproex (QD) 250 mg ER24 Tablet PO SCH (21:11)
[2017-01-12] VITALS (9 sets, daily range): BP systolic 116–158; BP diastolic 73–97; PULSE 70–114; RESP 16–20; O2SAT 95–99
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
[2017-01-12 03:14] LABS: BASOPHILS % (AUTO) 0.1 % (0-3); EOSINOPHILS % (AUTO) 3.2 % (0-5); MONOCYTES % (AUTO) 10.8 % (4-12); Mean Corpuscular Hemoglobin 29.7 pg (27.0-35.0); Mean Corpuscular Volume 95.1 fL (81-100); NEUTROPHILS % (AUTO) 68.9 % (40-74); Platelet Count 135 bil/L (150-400)
[2017-01-12 03:37] LABS: Magnesium 2.1 mg/dL (1.6-2.6); Phosphorus 3.6 mg/dL (2.5-4.9)
[2017-01-12] MEDS: Piperacillin-Tazo 3.375 Gm Inj 3.375 GM in Dextrose 5% Minibag Plus 50 ML IV SCH (05:21)
[2017-01-12] MEDS: Divalproex (QD) 250 mg ER24 Tablet PO SCH (07:48)
[2017-01-12] MEDS: Chlorhexidine 0.12% 15 mL Oral Solution MUC_MEMBRM SCH (07:49)
[2017-01-12] MEDS ORDERED: Furosemide 10 mg/mL 2 mL Inj IVPUSH ONE (08:05)
--- NOTE | 2017-01-12 08:06 | PROCED ---
[address] [address] EEG PATIENT: ANDREA FRIEDMAN : 1950 MR#: [id number] ADMIT: 01/10/2017 JOB ID: [id number] DATE OF SERVICE: 01/11/2017 REQUESTING PHYSICIAN: Belgica Zuniga DO. CLINICAL HISTORY: The patient is a 66-year-old gentleman with spells of hand tremoring. Past medical history includes seizures, currently on Depakote. DESCRIPTION: While awake and with eyes closed, there are 6-hertz rhythmic and symmetric waveforms seen over the occipital head region which attenuate with eye opening. The patient enters sleep at which time there is slowing of the background rhythm. There are no focal lateralizing or epileptiform abnormalities seen throughout the recording. Rhythm strip shows irregular heart rate and tachycardic rhythm. Activation: Photic activation does not reveal any photic driving. No photoparoxysmal discharges are seen. Hyperventilation was not performed due to cardiac issues. IMPRESSION: Essentially normal electroencephalogram aside from slowing. Abnormal electrocardiogram noted. No epileptiform abnormalities seen. Clinical correlation advised.
[2017-01-12] MEDS: Famotidine Inj 10 MG in Dextrose 5% 50 ML IV SCH ×2 (08:27→20:36)
--- NOTE | 2017-01-12 10:15 | DRSVH ---
PROCEDURE: X-RAY CHEST ONE VIEW, PORTABLE ([id number]) INDICATIONS: post-extub TECHNIQUE: One view of the chest was acquired. COMPARISON: [facility], CR, XR CHEST 1VW (PORTABLE), 01/11/2017, 8:23. FINDINGS: Surgical changes and devices: Endotracheal and nasogastric tubes have been removed. Lungs and pleura: There is diffuse appearance of increased pulmonary vascularity, more prominent when compared to prior exam. Mediastinum: Mediastinal contours appear normal. Heart size is normal. Bones and chest wall: No suspicious bony lesions. Overlying soft tissues appear unremarkable. IMPRESSION: Increased appearance of pulmonary vascularity compared to prior exam suggestive of edema. Underlying areas of developing pneumonia and/or atelectasis cannot be excluded. Dictated by: Paige Acevedo M.D. on 01/12/2017 at 10:13 Approved by: Paige Acevedo M.D. on 01/12/2017 at 10:14
--- NOTE | 2017-01-12 11:05 | NUR ---
[facility] Signed
[2017-01-12] MEDS: 0.9% Sodium Chloride 1,000 ML IV SCH (11:19)
--- NOTE | 2017-01-12 11:23 | NUR ---
NUTRITION FOLLOW-UP: ASSESS: Pt is a 66 YO male admitted with respiratory failure, successfully extubated yesterday with discontinuation of enteral feeding. Diet was advanced in a timely manner to mechanical soft, thin liquids. PO intake not yet recorded. He remains in the hospital with possible HCAP, elevated LFT's. EEG results pending correlation. The patient is confused and agitated this morning. PMHX: Afib, seizures, TBI, HTN, Depression. LABS: Reviewed. Cr 0.74, Glu 127, Ca 8.4, AST 262, ALT 414, Alb 3.3. MEDS:Reviewed. Lasix, zoloft. GI: No BM recorded at this time. SKIN: Alberto 20; no issues noted. WT: 109.1 kg, BMI 34.0 kg/m2. Admit weight: 108.2 kg, BMI 34.2 kg/m2, IBW 74.5kg DIET: Mechanical soft, thin liquids. PO intake not yet recorded. EST. NEEDS (BMI): Kcals: 2165-2380kcal/day (20-22kcal/kg) Pro: 110-135g/day (1.5-1.8g/kg) Fluids: ~2700-3200ml/day (25-30ml/kg) NUTRITION DIAGNOSIS: 1) Inadequate oral intake related to decreased ability to consume sufficient energy as evidenced by current NPO status - RESOLVED WITH EXTUBATION AND DIET ADVANCE PER ST. NUTRITION INTERVENTION: 1) In the event PO intake does not meet nutrient needs due to patient's confusion and agitation, will add supplements to trays to pique his appetite. MONITOR / EVAL: Diet advance / tolerance, PO intake, labs, GI /nutrition status. Will follow up per moderate nutrition risk guidelines.
--- NOTE | 2017-01-12 11:46 | PROG NOTE ---
[address] [address] PROGRESS NOTE PATIENT: ANDREA FRIEDMAN : 1950 MR#: [id number] ADMIT: 01/10/2017 JOB ID: [id number] DATE: 01/12/2017 PULMONARY PROGRESS NOTE: The patient is a 66-year-old man status post recent prolonged hospitalization at [facility] for respiratory failure and altered mental status presenting with rapid atrial fibrillation and respiratory failure on mechanical ventilation with aspiration pneumonia. INTERVAL HISTORY: He was extubated yesterday and has been doing well on nasal cannula. He is alert, answering questions appropriately and denies any history of seizure disorder and says his Depakote is for migraines. Denies any cough, shortness of breath, chest pain, fever or chills. REVIEW OF SYSTEMS: As above. PHYSICAL EXAMINATION: Vital signs reviewed. Temperature 36.8, pulse 98, respirations 19, BP 154/95, sats 96% on 2 L nasal cannula. General: Sitting up in bed. Alert, appropriate and pleasant, answering questions. Chest: Clear to auscultation. LABORATORIES: Reviewed. WBC 7.6. Chemistry also reviewed and within normal limits. Procalcitonin is 0.66 yesterday. Chest x-ray today shows pulmonary vascular prominence with some atelectasis at the bases. No growth on sputum cultures. ASSESSMENT AND RECOMMENDATIONS: 1. Acute hypoxic respiratory failure-intubated January 10 and extubated January 11. 2. Atrial fibrillation-controlled. 3. Suspected aspiration pneumonia versus pneumonitis. 4. History of traumatic brain injury and migraines but NO seizure disorder. A 66-year-old man who spent about 10 days at [facility] during which he was intubated and had problems with altered mental status. He had a history of traumatic brain injury but denies any history of ever having seizures. He says his Depakote was for migraines. He got Lasix 20 mg IV but unfortunately he was still getting IV fluids which were stopped by the primary team today and he got additional Lasix. I recommended he use an incentive spirometer and work with physical therapy. I would recommend finishing seven days of antibiotics for suspected aspiration pneumonia because his procalcitonin is slightly elevated. Because his sputum culture is negative, I do not know that we need to do Zosyn for pseudomonal coverage and I think Unasyn would be just fine as well. Advantage with this would be that we could switch it to Augmentin p.o. at discharge. He is getting metoprolol and digoxin and this seems to be helping his atrial fibrillation. Rate is around 100. Depakote was held by primary team because of LFT elevation. If his LFTs settle down, we could consider restarting it prior to discharge. Keppra can be stopped because there is no history of seizure disorder. He is getting subcu heparin and GI prophylaxis is not indicated because he is extubated. He is getting Xarelto p.o. daily for his atrial fibrillation. Since the patient is doing so well, I will sign off. Please contact me for any problems or questions.
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
[2017-01-12] MEDS: Digoxin 0.25 mg/mL 2 mL Inj IV SCH (13:10)
[2017-01-12] MEDS: Ampicillin-Sulbactam Inj 1,500 MG in 0.9% Sodium Chloride 50 ML IV SCH ×2 (16:21→20:39)
--- NOTE | 2017-01-12 16:28 | NUR ---
Mentation/Cardiac Pt forgetful, not impulsive this shift. SpO2 mid 90s on 2L NC. Denies SOB/Dyspnea. Continues in Afib, rate 70s to high 90s; IV Digoxin given as ordered. Denies pain at rest, some lower back pain with movement, declines pain medication.
--- NOTE | 2017-01-12 21:32 | NUR ---
AMBULATION Pt able to ambulate w/SBA during room transfer, pt tolerated well w/o O2. Denied SOB, steady gait, ambulated 50+ feet. Pt SBA to BR @ this time. Pt A&Ox3 with no confusion @ this time.
[2017-01-13] VITALS (9 sets, daily range): BP systolic 117–158; BP diastolic 68–91; PULSE 59–116; RESP 18–20; O2SAT 90–96
[2017-01-13] MEDS: Ampicillin-Sulbactam Inj 1,500 MG in 0.9% Sodium Chloride 50 ML IV SCH ×4 (03:24→20:59)
[2017-01-13 03:53] LABS: Mean Corpuscular Hemoglobin 29.9 pg (27.0-35.0); Mean Corpuscular Volume 94.3 fL (81-100)
--- NOTE | 2017-01-13 05:29 | NUR ---
IV Pt 'accidentally' pulled out his IV, stated he was "sweating and the thing just fell out" 22 gauge started on right forearm, Daya cover over site.
[2017-01-13] MEDS ORDERED: Divalproex (QD) 500 mg ER24 Tablet PO SCH (11:55)
[2017-01-13] MEDS: Divalproex (QD) 500 mg ER24 Tablet PO SCH ×2 (12:23→23:51)
[2017-01-13] MEDS: Digoxin 0.25 mg/mL 2 mL Inj IV SCH (12:24)
--- NOTE | 2017-01-13 13:26 | PROG NOTE ---
[address] [address] PROGRESS NOTE PATIENT: ANDREA FRIEDMAN : 1950 MR#: [id number] ADMIT: 01/10/2017 JOB ID: [id number] DATE: 01/13/2017 REASON FOR FOLLOWUP: Recurrent intubation for respiratory failure with probable underlying pulmonary infection. INTERVAL HISTORY: Recall, this is the 66-year-old man who lives out on [facility], who was admitted to [facility] in [place] and intubated briefly earlier this month. He then slowly recovered from what was thought to be pneumonia and was discharged back to [place] on [facility]. Almost immediately, he deteriorated again, required re-intubation, and was admitted to this facility because the [facility] was full. He steadily improved during his first day or two here and was eventually successfully extubated again. At this point, the patient is awake and alert and having breakfast. He is able to tell me that he thinks what happened to him was related to a very severe migraine. He also wished to emphasize he does not have a seizure disorder, which has been widely reported in the chart. He says he is not exactly sure why he has had these respiratory failure episodes twice this month already, but that he now feels headed back to his normal state of health. He denies any fevers, chills, or sweats. He notes he does not have sore throat and that he has minimal cough with no real shortness of breath this morning. No GI symptoms either. PHYSICAL EXAMINATION: Reveals an afebrile gentleman. He has been afebrile since admission and he has now been here going on four days. Temp 36.4, pulse 73, respiratory rate 18, blood pressure 130/85. Saturating 90% on room air. Examination of oral cavity is unremarkable. Lungs reasonably clear with a few crackles at the bases. Cardiac tones: Irregular rate and rhythm. It sounds like AFib. Abdomen slightly distended, soft, nontender. No skin rash. LABORATORIES: Include white count 7200. Recall that when he came in on December, his white count was 17,000 and then immediately normalized. Platelets 149, creatinine 0.68. His LFTs had been quite elevated on January 12. His ALT reached 414. Today, it has dropped back down to 290 and his AST, which was 262 yesterday is 93 today. Alk phos and bilirubin have been normal throughout. Albumin 3.3. Procalcitonin 0.66 on two measurements basically [id number]. Urinalysis negative. Micro: Urine Legionella and pneumococcal antigens negative. Blood cultures negative. MRSA screen negative. Viral PCR negative. Chest x-ray done yesterday shows possible pulmonary edema which the radiologist notes may be slightly worse actually than the prior film. IMPRESSION: Possible aspiration pneumonia perhaps combined with some fluid overload and also possibly with a component of mental status changes may have led to this patient's two episodes of respiratory failure this month. At this point, he is rapidly improving and says basically that he is back to something approaching his normal respiratory status. Little about this case suggest any really severe underlying bacterial infection, though we do have two procalcitonins which are borderline at about 0.6. RECOMMENDATIONS: 1. The patient is currently receiving Unasyn as the Pulmonary consultant [employer]. vice president [employer] (ex ) yesterday switched from Zosyn to Unasyn, thinking Pseudomonas was unlikely. 2. I think it is reasonable to finish a course of therapy with Unasyn, though we could consider even an early switch to Augmentin to facilitate discharge. Note that this is currently his fourth day in the hospital, and an appropriate course of antibiotics for an aspiration type event would be seven days or so, which would take us through Saturday, January 16. If the patient is deemed ready to leave sooner than that, however, I think Augmentin would be a reasonable alternative to finish out that week of therapy. 3. Seeing no active ID issues, will go ahead and sign off at this time.
[2017-01-13] MEDS ORDERED: 0.9% Sodium Chloride 100 ML ONE (14:49)
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
--- NOTE | 2017-01-13 15:41 | NUR ---
Social Work: Readiness for Discharge D: Pt discussed in am rounds with providers. Pt is not medically stable for discharge at this time but will be ready to d/c on Saturday. APPLICATION SECURITY ARCHITECT met with patient at bedside. APPLICATION SECURITY ARCHITECT observed patient to be ambulating the halls independently with nursing staff. Pt does not feel that he requires nursing home and would like to discharge home. APPLICATION SECURITY ARCHITECT reviewed possible home health option in which patient states he does not believe he needs. Pt is not homebound and can follow up with outpatient providers if needed. t/c to patient's mother who agrees with plan as patient is ambulating I and able to manage ADLs. APPLICATION SECURITY ARCHITECT spoke with [employer] who confirms that the patient has a [employer] transportation benefit. Pt arrived via EMS and is eligible to use his [employer] transportation benefit. Pt will require a priority boarding pass for the [facility]. APPLICATION SECURITY ARCHITECT will obtain provider signature and fax to the [place] and [place] [facility] terminals once completed. A: pt who is I at baseline, and lives at home alone. P: Pt to discharge home via HS transportation once medically stable; APPLICATION SECURITY ARCHITECT to fax completed priority boarding paperwork to [facility] terminal. EDMAR Diamond
--- NOTE | 2017-01-13 18:05 | NUR ---
Ambulation Pt ambulated around the lopez for 2 laps, SBA for safety but could do it independently. Pt also did this on RA and sats sustained in mid 's.
[2017-01-14] MEDS: Ampicillin-Sulbactam Inj 1,500 MG in 0.9% Sodium Chloride 50 ML IV SCH ×2 (02:10→08:31)
[2017-01-14 03:24] VITALS: BP 162/104; PULSE 62; RESP 20; O2SAT 94
[2017-01-14 04:19] VITALS: PULSE 69
--- NOTE | 2017-01-14 06:36 | NUR ---
NOC PT HR remains in afib and rate has been poorly controlled this shift. At around 1930 last marjorie pt was doing his IS and his HR was up to 160 for a few seconds. HE then sustained around 130 for about 10-15 minutes. Since then his HR has been anywhere from 90-115. PT is on RA at this time. Lungs are clear. This RN did not allow pt to shower last mrajorie because of elevated HR. PT has been voiding per urinal. Receiving IV abx. Afebrile. PT is oriented, but a little emotionally labile at times and was even tearful when he brought up his childhood. Pt ambulates in room. His gait is steady. SCD"s removed this am. Bruise to sacrum noted from pt falling over a week ago at home pt reported.
[2017-01-14 07:56] VITALS: BP 148/83; PULSE 67; RESP 16; O2SAT 93
[2017-01-14 08:29] LABS: BASOPHILS % (AUTO) 0.3 % (0-3); EOSINOPHILS % (AUTO) 2.6 % (0-5); MONOCYTES % (AUTO) 9.4 % (4-12); Mean Corpuscular Hemoglobin 29.9 pg (27.0-35.0); Mean Corpuscular Volume 92.4 fL (81-100); NEUTROPHILS % (AUTO) 61.8 % (40-74); Platelet Count 174 bil/L (150-400)
[2017-01-14] MEDS ORDERED: DIGO250T72 PO (09:18)
[2017-01-14] MEDS ORDERED: AMOX-366 PO (09:18)
--- NOTE | 2017-01-14 09:23 | PCM.DIMED ---
Discharge Instructions Date of Service January 14, 2017 Dates of Hospitalization January 10, 2017 at 03:52 Discharge Diagnosis Discharge Diagnosis Acute respiratory failure with hypoxia; health care associated pneumonia; atrial fibrillation with rapid ventricular response; elevated liver enzymes; chronic systolic congestive heart failure LVEF 45% Medication Instructions Continue heart medicines including metoprolol. A new heart medicine digoxin has been started to help control the heart rate. Take Augmentin antibiotic for 2 1/2 more days to complete your course of antibiotics. Prescriptions were sent to your pharmacy. Diet Heart Healthy Activity No restrictions Call your provider Shortness of breath Patient Instructions Contact Dr. Walden for follow up plans from your previous hospitalization at [place]. Follow-up Provider: STONE WALDEN MD Follow-up with PCP in: 1 week Stephen Hilario MD January 14, 2017 09:23
--- NOTE | 2017-01-14 09:30 | PCM.DC.MED ---
Discharge Summary Date of Service January 14, 2017 Dates of Hospitalization Date of Hospital Admission January 10, 2017 at 03:52 Date of Discharge: January 14, 2017 Providers: Admitting Physician: Rene Penaloza MD Primary Care Physician: Colt Siu MD Attending Physician: Rene Penaloza MD Diagnosis at Time of Discharge Diagnosis at Time of Discharge Acute respiratory failure with hypoxia; health care associated pneumonia; atrial fibrillation with rapid ventricular response; elevated liver enzymes; chronic systolic congestive heart failure LVEF 45% Consultations ID RECOMMENDATIONS: 1. The patient is currently receiving Unasyn as the Pulmonary center lead consultant yesterday switched from Zosyn to Unasyn, thinking Pseudomonas was unlikely. 2. I think it is reasonable to finish a course of therapy with Unasyn, though we could consider even an early switch to Augmentin to facilitate discharge. Note that this is currently his fourth day in the hospital, and an appropriate course of antibiotics for an aspiration type event would be seven days or so, which would take us through Saturday, January 16. If the patient is deemed ready to leave sooner than that, however, I think Augmentin would be a reasonable alternative to finish out that week of therapy. 3. Seeing no active ID issues, will go ahead and sign off at this time. Jonn Alcantara MD 01/13/17 0925 Procedures XRay, CTs & MRIs CT ANGIO CHEST PULMONARY EMBOLISM IMPRESSION: No evidence of pulmonary embolism. Small bilateral pleural effusions, right greater than left, with adjacent atelectasis. Mild cardiomegaly Dictated by: Jeremias Duron M.D. on 01/10/2017 at 12:54 US ABDOMEN IMPRESSION: 1. Markedly increased hepatic echogenicity with coarse echotexture likely representing hepatic steatosis and limiting evaluation. 2. Distended gallbladder without cholelithiasis or definite evidence of cholecystitis. 3. 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 Dictated by: Robert Li M.D. on 01/10/2017 at 18:58 X-RAY CHEST ONE VIEW, PORTABLE IMPRESSION: Increased appearance of pulmonary vascularity compared to prior exam suggestive of edema. Underlying areas of developing pneumonia and/or atelectasis cannot be excluded. Dictated by: Paige Acevedo M.D. 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 Previous history from Discharge Summary from [facility]: Patient admitted on 12/30 to [facility] due to Altered mental status. He was found in his closet with de creased responsiveness. He was flown to [facility] and subsequently intubated for air way protection. He was started on Acyclovir, Ampicillin, Levaquin, Vancomycin and Ceftriaxone and admitted to the ICU and then discharge 01/09/18.Acute Hypoxic respiratory failure, ventilated 12/30-01/01 and still requiring oxygen nasal cannula 2 L at discharge. Sepsis due to pneumonia, treated with course of Ceftriaxone + Azithromycin then discharge with Levaquin PO and tapering dose of Prednisone. Acute Encephalopathy due to metabolic cause. LP showed no meningitis, CT head negative and no neurological deficits noted. Atrial Fibrillation with RVR on Diltiazem drip, then placed on Metoprolol 175 mg bid and on Xarelto upon discharge, Digoxin was held. Also noted some transaminitis felt to be due to sepsis. No seizure episodes reported and was continued on Depakote. He was discharged to [facility]. New interval history: Patient arrived around noon time and was complaining of head ache, shortness of breathe and fever 101.4. He was send to [facility] and admitted. He was diagnosed with Sepsis with unclear source and was started on Vancomycin and Zosyn IV. One hour into the admission the patient developed worsening nausea, confusion and respiratory distress. He desaturated requiring 15 L non rebreather to maintain oxygen levels around 90. Tachypneic 30-40. He was intubated. He was also tachycardia with A fib with RVR 160-170. Patient was given Metoprolol IV and then electrically cardioverted. Chest X ray reported to have right airspace disease which may represent atelectasis or pneumonia persists. Left basilar airspace disease appears resolved. Labs showed WBC 9.7 Hgb 13.9 Troponin 0.03-->0.04 Na 141 K 4.2 BUN 21 Cr 0.8 Ca 8.3 ALT 163 AST 40 BNP 134 lactic acid 3.0-->1.3 Dr Siu contacted [facility] but no ICU beds available and the contacts us at [facility] for transfer to the ICU Hospital Course # Possible Health care associated pneumonia. Meeting criteria due to recent hospitalization at [facility] with risk for MRSA and Pseudomonal infections, however negative sputum cultures and overall improving condition do not support pseudomonal pneumonia. Rx with Unasyn as noted above, with transition to Augmentin on discharge per ID. - sputum cultures negative for growth, procalcitonin equivocal - Blood cultures negative, PCR negative - Discontinue prednisone. # Transaminitis likely secondary to fatty liver. Present on admission, active. Improved. - presumed passive congestion from Afib RVR. # Atrial fibrillation with rapid ventricular response s/p Electrical cardioversion. Present on admission, active - continue with Metoprolol 175 mg bid with the addition of digoxin - Continue Rivaroxaban # Acute Hypoxic Respiratory failure status post extubation. Present on admission. Resolved. Possibly due to healthcare associated pneumonia. - CTA of chest negative, complete ECHO without significant change - received diuresis - good RA saturation at time of discharge # Seizure disorder. Chronic - Some further history from patient with improving mentation it appears he does not have a history of seizure disorder repeatedly confirms to myself and insurance marketing specialist that he has taken Depakote in the past for migraine headaches. The last event was approximately 5 months ago. - EEG was additionally negative for any evidence of epileptiform activity. . Exam Vital Signs (Last) Date Time Temp Pulse Resp B/P Pulse Ox O2 Delivery O2 Flow Rate FiO2 01/14/17 07:56 37.0 67 16 148/83 93 Room Air 01/13/17 04:22 1.00 01/11/17 07:27 40 Exam General: Alert, Cooperative, Other (he is alert and oriented 3, still demonstrating poor judgment in certain instances. ) Mouth: Mucous Membr Moist/[place] Chest & Lungs: mild crackles at bilateral bases. Cardiovascular: irregularly irregular rhythm. No murmurs rubs or gallops. ) Abdomen: Non-tender, Non-distended, Other (obese) Extremities: No cyanosis/clubbing/edma bilat Neurological: Grossly Neurologically Intact, Cranial Nerves 2-12 Intact Test 01/10/17 04:25 01/10/17 06:15 01/10/17 09:15 01/10/17 10:09 Band Neutrophils % 3% (1-5) Metamyelocytes % 2% (0-0) Prealbumin 27mg/dL (20-40) Hold Ha Top Tube Received (Received) Hold Purple Top Tube Received (Received) Hold [place] Top Tube Received (Received) Lactic Acid Level 1.8mmol/L (0.4-2.0) Troponin T 0.011ug/L (0.0-0.011) Lipase 40U/L (13-60) Valproic Acid (Depakene) Level 19ug/mL (50-125) Urine Color Straw (YELLOW) Urine Appearance Hazy (CLEAR,HAZY) Urine pH 6.5 (5.0-8.0) Urine Specific [place] 1.010 (1.003-1.035) Urine Protein Negativemg/dL (NEG,TRACE) Urine Glucose (UA) Negativemg/dL (NEGATIVE) Urine Ketones Negativemg/dL (NEGATIVE) Urine Occult Blood Negative (NEGATIVE) Urine Nitrite Negative (NEGATIVE) Urine Bilirubin Negative (NEGATIVE) Urine Urobilinogen Normalmg/dL (NORMAL) Urine Leukocyte Esterase Negative (NEGATIVE) Urine RBC 0-2/hpf (0-2) Urine WBC 0-5/hpf (0-5) Urine Epithelial Cells Occasional/hpf (NONE-MOD) Urine Crystals None seen (NONE SEEN) Urine Bacteria Few/hpf (NONE-FEW) Urine Hyaline Casts Occasional/lpf (NONE) Urine Granular Casts Occasional (NONE SEEN) Urine Waxy Casts None seen (NONE SEEN) Urine Red Blood Cell Casts None seen (NONE SEEN) Urine White Blood Cell Casts None seen (NONE SEEN) Urine Mucus Present (None Seen) Urine Trichomonas None seen (NONE SEEN) Urine Yeast None (NONE SEEN) Urinalysis Comment None Urine Culture Reflexed Not indicated Test 01/10/17 10:30 01/10/17 15:26 01/11/17 04:45 01/12/17 02:56 Urine Legionella pneumophilia Ag Negative (Negative) Activated Partial Thromboplast Time 76.3sec (22.8-33.0) Procalcitonin 0.66ng/mL (0.00-0.08) Phosphorus Level 3.6mg/dL (2.5-4.9) Magnesium Level 2.1mg/dL (1.6-2.6) Test 01/13/17 03:23 01/14/17 07:58 Digoxin Level 0.7nG/mL (0.9-2.0) White Blood Count 7.4th/mm3 (3.8-10.1) Red Blood Count 4.45mil/mm3 (4.40-5.80) Hemoglobin 13.3g/dL (13.8-17.2) Hematocrit 41.1% (41.0-50.0) Mean Corpuscular Volume 92.4fL (81-100) Mean Corpuscular Hemoglobin 29.9pg (27.0-35.0) Mean Corpuscular Hemoglobin Concent 32.4% (32.0-37.0) Red Cell Distribution Width 16.1% (12.3-15.4) Platelet Count 174bil/L (150-400) Neutrophils (%) (Auto) 61.8% (40-74) Lymphocytes (%) (Auto) 24.7% (14-46) Monocytes (%) (Auto) 9.4% (4-12) Eosinophils (%) (Auto) 2.6% (0-5) Basophils (%) (Auto) 0.3% (0-3) Sodium Level 142mEq/L (134-144) Potassium Level 4.2mEq/L (3.5-5.2) Chloride Level 101mEq/L (97-108) Carbon Dioxide Level 28mmol/L (18-29) Blood Urea Nitrogen 15mg/dL (8-27) Creatinine 0.69mg/dL (0.76-1.27) Estimat Glomerular Filtration Rate 122mL/min (>59) Glucose Level 135mg/dL (60-99) Calcium Level 9.2mg/dL (8.5-10.1) Total Bilirubin 0.6mg/dL (0.0-1.2) Aspartate Amino Transf (AST/SGOT) 56U/L (0-50) Alanine Aminotransferase (ALT/SGPT) 208U/L (0-44) Alkaline Phosphatase 70U/L (25-160) Total Protein 6.0g/dL (6.4-8.4) Albumin 3.6g/dL (3.4-5.0) Microbiology Results MRSA screen negative Discharge Medications Discharge Medications Amoxicillin/Clav K 875-125 mg (Augmentin 875-125 mg) 1 Each Tablet 1 TABLET PO BID Prescribed by: PHYLLIS SHARP MD Calcium Carbonate (Calcium Carbonate) 600 Mg Tablet 600 MG PO DAILY (Reported) Cholecalciferol (Vitamin D3) (Vitamin D3) 400 Unit Tablet 400 UNIT PO DAILY ( Reported) Digoxin (Digoxin) 250 Mcg Tablet 0.25 MG PO DAILY Prescribed by: PHYLLIS SHARP MD Divalproex ER (Divalproex ER) 500 Mg Tab.er.24h 500 MG PO BID (Reported) *DAILY DOSING ONLY* Swallowed whole without chewing to avoid local irritation of the mouth and throat. Folic Acid (Folic Acid) 1 Mg Tablet 1 MG PO DAILY (Reported) Furosemide (Lasix) 20 Mg Tablet 20 MG PO DAILY (Reported) Hydrocortisone Acetate (Anusol-Hc) 25 Mg Supp.rect 25 MG RC BID (Reported) Lactobacillus Combo No.11 (Probiotic) 1 Each Cap.sprink 1 EACH PO DAILY ( Reported) Lisinopril (Lisinopril) 10 Mg Tablet 10 MG PO DAILY (Reported) Metoprolol Tartrate (Metoprolol Tartrate) 100 Mg Tablet 175 MG PO BID (Reported ) Rivaroxaban (Xarelto) 20 Mg Tablet 20 MG PO HS (Reported) Sertraline HCl (Sertraline) 20 Mg/1 Ml Oral.conc 50 MG PO DAILY (Reported) Tamsulosin (Flomax) 0.4 Mg Capsule 0.4 MG PO DAILY (Reported) Vit C/Vit E/Lutein/Min/Acushnet-3 (Ocuvite Softgel) 1 Each Capsule 1 EACH PO DAILY (Reported) As needed Acetaminophen (Acetaminophen) 325 Mg Tablet 650 MG PO Q6H PRN PRN For Fever ( Reported) Polyethylene Glycol 3350 (Miralax) 17 Gm Powd.pack 17 GM PO DAILY PRN PRN For Constipation (Reported) Additional med instructions Continue heart medicines including metoprolol. A new heart medicine digoxin has been started to help control the heart rate. Take Augmentin antibiotic for 2 1/2 more days to complete your course of antibiotics. Prescriptions were sent to your pharmacy. Followup Plan Discharge Diet: Heart Healthy Discharge Activity: No restrictions Patient Instructions Contact Dr. Siu for follow up plans from your previous hospitalization at [facility]. Follow-up Provider: STONE SIU MD Follow-up with PCP in: 1 week Time spent 35 min copies to: Colt Siu MD, Jeffrey W MD January 14, 2017 09:30
[2017-01-14 10:19] VITALS: PULSE 120
[2017-01-14 12:07] VITALS: PULSE 101
[2017-01-14] MEDS: Divalproex (QD) 500 mg ER24 Tablet PO SCH (12:08)
--- NOTE | 2017-01-14 12:20 | NUR ---
Faxed [facility] transport form to [facility] for [facility] home[facility] Asked for 1300 picking crew supervisor in main lobby. Updated ANGIOGRAPHER
--- NOTE | 2017-01-14 13:05 | NUR ---
Discharge Pt discharged at about 1300. He was given discharge instructions and instructions for follow up care. His prescriptions were faxed to the pharmacy in saturday, the patient was made aware of that. IV was discontinued, catheter intact. He was brought by wheelchair to the exit by unit staff. The wheelchair transportation [place].
--- NOTE | 2017-01-14 15:35 | NUR ---
Social Work Note: Discharge Data& Assessment: Per pt is medically ready for discharge. Vince Baumann is a 66 year old male admitted on 01/10/2017 for respiratory failure, AFIB W/RVR. Per pt is medically improved and ready for discharge. Pt does not require oxygen and is ambulating the halls. Pt not appropriate for SNF. Pt had previously declined home health services, pt now expressed that he was agreeable to home health RN and there must have been a misunderstanding. ALTAGRACIA received orders from for home Health RN for vitals and medication management. Pt presented with home health list, however [place] in [place] and the only agency that serves that area is [facility]. ALTAGRACIA spoke with Cheyenne from [facility] for referral and faxed the orders. Copy of F2F and orders placed in pt chart. [facility] unable to open with pt until next SaturdayJanuary 22 or sooner if there is any cancelations. aware. Pt aware. documentation specialist arranged [facility] taxi transportation for pt to get to the [email or web address] and confirmed [facility] transportation will also coordinate purchase of [place] ticket for pt. ALTAGRACIA spoke with pt mother Jyoti who lives in [place] to confirm discharge plan and assess for any unmet needs. Pt mother coordinated pt friend Narayan to meet him after he [place] [id number]. Pt had expressed interest in more help at home, ALTAGRACIA discussed eligibility for [employer] [employer] with pt and pt mother. Pt explained he does not receive very much money every month and declined [facility] at this time in anticipation of the program taking away from his Social Security every month. Pt mother did take website information for [employer] for future reference and will discuss it with pt after he recovers from this hospitalization. Pt mother denies any other needs. Pt denies any other needs. RN and MD updated and notified of plan. No other discharge needs identified. Plan: Per pt is medically ready to discharge home via [facility] transportation. ALTAGRACIA arranged [facility] RN for vitals and medication management per MD order who will begin services on January 22. MD aware. Pt mother denies any other needs. Pt denies any other needs. RN and MD updated and notified of plan. No other discharge needs identified. EDMAR Hickey
== END 2017-01-14 13:00 | disposition home health service (06) | DRG 208 ==
LOC: PCC 03:52 → CCU 03:57 → PCC 01-11 20:08
PROVIDERS: ADMIT Hospitalist; ATTEND Hospitalist
PROC: 5A1945Z Respiratory Ventilation, 24-96 Consecutive Hours (ICD-10-PCS; principal; 2017-01-10)
PROC: 4A033B1 Measurement of Arterial Pressure, Peripheral, Percutaneous Approach (ICD-10-PCS; 2017-01-10)
PROC: 4A10X4Z Monitoring of Central Nervous Electrical Activity, External Approach (ICD-10-PCS; 2017-01-11)
DX: J96.01 Acute respiratory failure with hypoxia (principal); J18.9 Pneumonia, unspecified organism; I50.22 Chronic systolic (congestive) heart failure; I95.9 Hypotension, unspecified; I48.2 Chronic atrial fibrillation; G40.909 Epilepsy, unspecified, not intractable, without status epilepticus; K76.0 Fatty (change of) liver, not elsewhere classified; Z79.01 Long term (current) use of anticoagulants; Z87.891 Personal history of nicotine dependence